=== PATIENT | male | born 1990 | race Caucasian/White ===

== ENCOUNTER 2022-10-13 18:29 | Inpatient (IN) | payer MEDICAID, SELFPAY ==
[2022-10-13 18:30] VITALS: BP 136/75; PULSE 64; RESP 18; TEMP 35.7; O2SAT 97; BMI 27.8
--- NOTE | 2022-10-13 20:03 | EDS_ITS ---
HPI History of Present Illness Chief Complaint: Substance Abuse Informant: patient Narrative Narrative: Patient is not the best informant but does come in for fentanyl detox. He evidently has been using fentanyl off and on for a long time. He does snorts it but he will also inject usually in his legs. He has had infections but never had them drained. He has been given antibiotics. He has never had heart valve involvement. He has not had any infections recently. He went through detox in [place] about 3 weeks ago. After he left, he did start using again. He had his follow-up appointment today to start Suboxone. He evidently had positive screen for fentanyl so they stated that he needs to go through detox again before he can start Suboxone. He has no physical complaints. He last use late last night or early this morning. He states he gets real shaky and anxious when he does not use but he is not feeling that yet. He has not had fevers or chills. He is not suicidal. PFSH PFS Medical History no medical history Home Medications gabapentin 800 mg tablet 800 mg PO TID 10/13/22 [History Last Taken Unknown] Allergy/AdvReac Type Severity Reaction Status Date / Time No Known Allergies Allergy Verified 10/13/22 18:31 Social History Smoking Status: Current every day smoker tobacco type: cigarettes ROS ROS ED ROS Narrative A complete review of systems was performed and is negative except as documented in the history of present illness. Some specific details below. Constitutional: No recent fevers or chills. No recent infections. No malaise. EYE: No visual complaints or pain. ENT: No throat pain CV: No chest pain or palpitations. No history of valve infections. Respiratory: No dyspnea or dyspnea on exertion. No hemoptysis. GI: No nausea vomiting. He has not had diarrhea at this point. : No frequency dysuria or hematuria. Musculoskeletal: No recent trauma. No pains. He normally injects in his legs. But he states his legs look normal to him. Skin: No acute rash. Nondiaphoretic. Neuro: No weakness or numbness. Endocrine: No polyuria or polydipsia. EXAM Physical Exam Narrative Exam Narrative: CONSTITUTIONAL: Patient is nontoxic in appearance. The patient looks comfortable. Work of breathing looks normal. HEENT: No notable trauma. Mucous membranes moist. EYES: No conjunctival injection. No proptosis. NECK:No JVD. No stridor. CARDIOVASCULAR: Regular rate. Regular rhythm. No notable murmur. No JVD. No muffled tones. RESPIRATORY: No respiratory distress. Breathing is unlabored. GASTROINTESTINAL: Not distended. Bowel sounds are normal. No tenderness. GENITOURINARY: No tenderness over the bladder. No CVA tenderness. MUSCULOSKELETAL: Atraumatic. He does have bilateral peripheral edema. He does have signs of track moreno from prior injections but they do not look acutely infected. He states his legs look normal to him. NEUROLOGICAL: Patient is alert and appropriate. No focal deficit noted. He does have a stutter but this is evidently not new. SKIN: Peripheral edema and track moreno but no sign of acute infection. PSYCHIATRIC: Patient is calm. Mood is appropriate. Const Vital Signs: 10/13/22 18:30 10/13/22 23:45 Temperature 96.3 F L Temperature Source Temporal Pulse Rate 64 58 L Respiratory Rate 18 16 Blood Pressure 136/75 H 100/63 Blood Pressure Mean 95 75 Pulse Ox 97 98 Oxygen Delivery Method Room Air Room Air MDM MDM MDM Narrative Medical decision making narrative: Patient CBC shows mild anemia and some leukopenia but his platelets are normal. Patient's electrolytes are normal. Patient's liver function test are normal. Patient's alcohol is negative. Patient's urine tox is positive for MDMA, methamphetamines, cocaine, cannabinoids. 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 Patient reports long-term opiate abuse. I asked him specifically if he uses the other compounds in his urine. He does use use marijuana but denies trying to use cocaine methamphetamines or MDMA. It is certainly possible that these are mixed in with what ever he is using. He went through detox tried to go to follow-up but it sounds like there was a delay between discharge from detox and his follow-up appointment for Suboxone. In that intervening time he started using so at his follow-up appointment did not want to provide Suboxone until he went through detox again. They referred him up here. I have discussed the case with the hospitalist. Lab Data Attestation: I reviewed the patient's lab results. Labs: Laboratory Results - last 24 hr 10/13/22 10/13/22 10/13/22 19:40 19:40 19:40 WBC 3.3 L RBC 4.71 Hgb 12.6 L Hct 38.1 L MCV 80.9 MCH 26.8 L MCHC 33.1 RDW Std Deviation 43.2 RDW Coeff of Oleksandr 14.7 H Plt Count 167 MPV 10.2 Immature Gran % (Auto) 0.300 Neut % (Auto) 61.1 Lymph % (Auto) 24.2 [place] % (Auto) 11.0 H Eos % (Auto) 3.1 Baso % (Auto) 0.3 Absolute Neuts (auto) 2.0 Absolute Lymphs (auto) 0.79 L Nucleated RBC % 0 Sodium 140 Potassium 3.6 Chloride 106 Carbon Dioxide 26.0 Anion Gap 8 BUN 13 Creatinine 0.73 Estim Creat Clear Calc 167.34 Est GFR (MDRD) Af Amer 160 Est GFR (MDRD) Non-Af 132 BUN/Creatinine Ratio 17.9 Glucose 95 Calcium 8.4 L Total Bilirubin 0.70 AST 34 ALT 31 Alkaline Phosphatase 108 Total Protein 6.8 Albumin 3.4 Globulin 3.4 Albumin/Globulin Ratio 1.0 Urine Opiates Screen Urine Methadone Screen Ur Barbiturates Screen Ur Phencyclidine Scrn Ur Amphetamines Screen MDMA (Ecstasy) Screen U Benzodiazepines Scrn Urine Cocaine Screen U Cannabinoids Screen Ur Drug Screen Comment Ethyl Alcohol < 3.0 10/13/22 20:00 WBC RBC Hgb Hct MCV MCH MCHC RDW Std Deviation RDW Coeff of Oleksandr Plt Count MPV Immature Gran % (Auto) Neut % (Auto) Lymph % (Auto) [place] % (Auto) Eos % (Auto) Baso % (Auto) Absolute Neuts (auto) Absolute Lymphs (auto) Nucleated RBC % Sodium Potassium Chloride Carbon Dioxide Anion Gap BUN Creatinine Estim Creat Clear Calc Est GFR (MDRD) Af Amer Est GFR (MDRD) Non-Af BUN/Creatinine Ratio Glucose Calcium Total Bilirubin AST ALT Alkaline Phosphatase Total Protein Albumin Globulin Albumin/Globulin Ratio Urine Opiates Screen NEGATIVE Urine Methadone Screen NEGATIVE Ur Barbiturates Screen NEGATIVE Ur Phencyclidine Scrn NEGATIVE Ur Amphetamines Screen POSITIVE H MDMA (Ecstasy) Screen POSITIVE H U Benzodiazepines Scrn NEGATIVE Urine Cocaine Screen POSITIVE H U Cannabinoids Screen POSITIVE H Ur Drug Screen Comment Ethyl Alcohol Management Discussion w/another healthcare provider: Hospitalist Discharge Plan Triage Chief Complaint: Substance Abuse ED Provider: Joe Rogers Dx/Rx/DC Orders Clinical Impression: Opiate abuse, continuous, Desire for detoxification, Leukopenia Prescriptions: No Action gabapentin 800 mg Tablet 800 mg PO TID Primary Care Provider: Care Physician,No Primary Referrals: Care Physician,No Primary [Primary Care Provider] - Disposition Disposition: Acute Care Hospital [facility]
[2022-10-13 20:12] LABS: AST(SGOT) 34 U/L (15-37); Alanine Aminotransfer ALT/SGPT 31 U/L (16-61); Albumin, Serum 3.4 g/dL (3.2-5.0); Alkaline Phosphatase 108 U/L (45-117); Anion Gap 8 (5-15); BUN 13 mg/dL (7-18); BUN/Creat Ratio 17.9 RATIO (10-20); Calcium,Total 8.4 mg/dL (8.5-10.1); Chloride 106 mmol/L (98-107); Creatinine, Serum 0.73 mg/dL (0.70-1.30); EST Glomerular Filtration Rate 132 mL/min (>60); Est Glom Filt Rate - Afr Amer 160 mL/min (>60); Estimated Creatinine Clearance 167.34 ml/min; Globulin 3.4 g/dL (2.2-4.2); Glucose 95 mg/dL (74-106); Potassium 3.6 mmol/L (3.5-5.1); Protein, Total 6.8 g/dL (6.4-8.2); Sodium Level 140 mmol/L (136-145)
[2022-10-13 20:27] LABS: Amphetamine Urine VISTA POSITIVE (<1000 ng/mL); Barbiturate Urine VISTA NEGATIVE (< 200 ng/mL); Benzodiazepine Urine VISTA NEGATIVE (< 200 ng/mL); Cocaine Urine VISTA POSITIVE (< 300 ng/mL); Ecstacy Urine VISTA POSITIVE (< 500 ng/mL); Methadone Urine VISTA NEGATIVE (< 300 ng/mL); PCP Urine VISTA NEGATIVE (< 25 ng/mL); THC Urine VISTA POSITIVE (< 50 ng/mL); Vista UDS pH Range 6
[2022-10-13 20:34] LABS: Absolute Lymphocyte Count 0.79 X10^3/uL (0.83-4.51); Basophil# 0.01 X10^3/uL; Basophil% 0.3 % (0-1); Eosinophils% 3.1 % (0-5); Hematocrit 38.1 % (40-54); Hemoglobin 12.6 g/dL (13.0-16.5); Lymphocyte # 0.79 X10^3/ul (0.83-4.51); Lymphocyte % 24.2 % (19-41); Mean Corp Hgb Conc 33.1 g/dL (32-36); Mean Corpuscular Hgb 26.8 pg (27.0-32.0); Mean Corpuscular Volume 80.9 fL (80-94); Mean Platelet Vol. 10.2 fl (6.2-12.0); Monocyte# 0.36 X10^3/uL; NRBC Flagged by Analyzer 0 % (0-5); Neutrophil % 61.1 % (47-70); Platelet Count 167 K/mm3 (150-450); RBC Distribution Width CV 14.7 % (11.6-14.6); RBC Distribution Width SD 43.2 fl (35.1-43.9); Red Blood Count 4.71 M/mm3 (4.6-6.2); White Blood Count 3.3 K/mm3 (4.4-11.0)
[2022-10-13 20:52] LABS: Alcohol, Blood (Medical)-Serum < 3.0 mg/dL
[2022-10-13 23:45] VITALS: BP 100/63; PULSE 58; RESP 16; O2SAT 98
--- NOTE | 2022-10-13 23:52 | PCM.HP.STD ---
HPI - General General Date of Admission: 10/14/22 Date of Service: 10/14/22 Chief Complaint: Desire for detoxification HPI Narrative ANTONIO AGUIRRE, is a 32 M with a significant history of tobacco abuse; neuropathy on gabapentin; and opioid abuse who presents to the emergency department for detoxification from opioids. Reportedly patient went to a detox program at [facility] 3 weeks ago. Upon discharge outpatient Suboxone program was arranged. Because when patient went to the outpatient Suboxone program he tested positive for fentanyl he was instructed to come to [facility] for detoxification. Patient reports that the last time that he used fentanyl was on the same day of presentation. Reportedly he used fentanyl for 12 years and now for the past 4 to 5 years he has been using fentanyl. He uses about a gram of fentanyl per day. He is not having any withdrawal symptoms. He snorts and also shoots in his right leg. He denies any withdrawal symptoms at this time. [facility] Medical History no medical history Home Medications gabapentin 800 mg tablet 800 mg PO TID 10/13/22 [History Last Taken Unknown] Allergy/AdvReac Type Severity Reaction Status Date / Time No Known Allergies Allergy Verified 10/13/22 18:31 no significant family history no surgical history Social History Smoking Status: Current every day smoker tobacco type: cigarettes ROS ROS Narrative Pertinent positives and pertinent negatives as noted in HPI. All other systems were reviewed and are negative Vital Signs Vital Signs Vital Signs: 10/13/22 18:30 10/13/22 23:45 Temperature 96.3 F L Temperature Source Temporal Pulse Rate 64 58 L Respiratory Rate 18 16 Blood Pressure 136/75 H 100/63 Blood Pressure Mean 95 75 Pulse Ox 97 98 Oxygen Delivery Method Room Air Room Air Weight Weight: 98.43 kg Body Mass Index (BMI) 27.8 Physical Exam Narrative Physical exam: General: Well-nourished, well-developed. Head: Normocephalic, atraumatic, no tenderness Eyes: Vision is grossly intact. EOMI ENT, no trauma, moist mucous membranes, no rhinorrhea Neck: Nontender, No thyromegaly. CVS: Regular rate and rhythm. S1-S2 present. No murmur, gallop or rub. Respiratory : clear to auscultation bilaterally, chest wall nontender Abdomen: Soft, nontender, nondistended, normal bowel sounds, no masses : Deferred Back: Nontender, no CVA tenderness, no midline spinal tenderness, deformities, step-offs Extremities: Nontender full range of motion, no trauma Skin: Needle track moreno on right leg. Abrasions on bilateral legs. Mild erythema on bilateral dorsal hands. Neuro: Alert, oriented, cranial nerves II through XII grossly intact. Psychiatry: Normal mood. Normal affect. Not depressed. Not anxious. Results Lab / Micro Data Result Diagrams: 10/13/22 19:40 10/13/22 19:40 Labs: Laboratory Results - last 24 hr 10/13/22 19:40: WBC 3.3 L, RBC 4.71, Hgb 12.6 L, Hct 38.1 L, MCV 80.9, MCH 26.8 L, MCHC 33.1, RDW Std Deviation 43.2, RDW Coeff of Oleksandr 14.7 H, Plt Count 167, MPV 10.2, Immature Gran % (Auto) 0.300, Neut % (Auto) 61.1, Lymph % (Auto) 24.2, [place] % (Auto) 11.0 H, Eos % (Auto) 3.1, Baso % (Auto) 0.3, Absolute Neuts (auto) 2.0, Absolute Lymphs (auto) 0.79 L, Nucleated RBC % 0 10/13/22 19:40: Sodium 140, Potassium 3.6, Chloride 106, Carbon Dioxide 26.0, Anion Gap 8, BUN 13, Creatinine 0.73, Estim Creat Clear Calc 167.34, Est GFR (MDRD) Af Amer 160, Est GFR (MDRD) Non-Af 132, BUN/Creatinine Ratio 17.9, Glucose 95, Calcium 8.4 L, Total Bilirubin 0.70, AST 34, ALT 31, Alkaline Phosphatase 108, Total Protein 6.8, Albumin 3.4, Globulin 3.4, Albumin/Globulin Ratio 1.0 10/13/22 19:40: Ethyl Alcohol < 3.0 10/13/22 20:00: Urine Opiates Screen NEGATIVE, Urine Methadone Screen NEGATIVE, Ur Barbiturates Screen NEGATIVE, Ur Phencyclidine Scrn NEGATIVE, Ur Amphetamines Screen POSITIVE H, MDMA (Ecstasy) Screen POSITIVE H, U Benzodiazepines Scrn NEGATIVE, Urine Cocaine Screen POSITIVE H, U Cannabinoids Screen POSITIVE H, Ur Drug Screen Comment Assessment & Plan Assessment/Plan (1) Desire for detoxification: (2) Leukopenia: (3) Opiate abuse, continuous: PLAN: Plan Opioid dependence and withdrawal Alcohol level on unremarkable. Urine drug screen positive for amphetamines, ecstasy, cocaine, and cannabinoids. Patient denies use of other substances except as stated in HPI. Patient be started on Subutex and other adjunctive medications: Dicyclomine as needed; Vistaril as needed; methocarbamol as needed; clonidine as needed; Imodium as needed; trazodone as needed and Zofran as needed. Monitor COWS and CINA score Tobacco abuse Counseled Nicotine patch prescribed. Leukopenia White count 3.3 on presentation. Trend. DVT prophylaxis Low risk Encourage to ambulate
[2022-10-14 00:15] VITALS: BP 100/65; PULSE 58; RESP 16; TEMP 36.7; O2SAT 98
[2022-10-14 01:33] VITALS: BMI 27.6
[2022-10-14 01:35] VITALS: BP 115/72; PULSE 55; RESP 16; TEMP 36.6; O2SAT 97
[2022-10-14] MEDS: Methocarbamol 750 MG Tablet 1500 MG PO ×2 (02:40→14:10)
[2022-10-14] MEDS: Buprenorphine HCl 2 MG TAB.SUBL SL ×3 (02:40→18:29)
[2022-10-14] MEDS: traZODone 100 MG Tablet PO ×2 (02:40→21:05)
[2022-10-14] MEDS: Gabapentin 800 MG Tablet PO ×3 (05:46→21:05)
[2022-10-14] MEDS: hydrOXYzine PAM 25 MG Capsule 50 MG PO ×2 (05:46→14:10)
[2022-10-14 05:50] VITALS: BP 139/83; PULSE 64; RESP 16; TEMP 36.6; O2SAT 98
[2022-10-14] MEDS: Ondansetron 8 MG Tablet PO (06:36)
[2022-10-14 06:52] LABS: Absolute Lymphocyte Count 0.62 X10^3/uL (0.83-4.51); Eosinophil# 0.06 X10^3/uL; Eosinophils% 3.1 % (0-5); Hemoglobin 13.6 g/dL (13.0-16.5); Lymphocyte # 0.62 X10^3/ul (0.83-4.51); Lymphocyte % 32.5 % (19-41); Mean Corp Hgb Conc 33.2 g/dL (32-36); Mean Corpuscular Hgb 26.8 pg (27.0-32.0); Mean Corpuscular Volume 80.9 fL (80-94); Mean Platelet Vol. 10.8 fl (6.2-12.0); Monocyte# 0.22 X10^3/uL; Monocyte% 11.5 % (0-10); NRBC Flagged by Analyzer 0 % (0-5); Neutrophil # 1.01 X10^3/uL (2.7-7.7); Neutrophil % 52.9 % (47-70); Platelet Count 126 K/mm3 (150-450); RBC Distribution Width CV 14.6 % (11.6-14.6); RBC Distribution Width SD 42.6 fl (35.1-43.9); Red Blood Count 5.07 M/mm3 (4.6-6.2); White Blood Count 1.9 K/mm3 (4.4-11.0)
[2022-10-14 09:55] VITALS: BP 117/65; PULSE 68; RESP 16; TEMP 36.7; O2SAT 100
--- NOTE | 2022-10-14 11:26 | ADDICTION ---
This curriculum writer met with PT to conduct ASAM, MSE, AUDIT, DUDIT assessments and to plan for d/c. PT A+Ox4 and participated actively. All assessments completed and placed in PT's chart. PT plans to f/u with [facility] for follow-up outpatient MAT services. [facility] will transport pt.
[2022-10-14 14:03] VITALS: BP 116/70; PULSE 72; RESP 18; TEMP 36.9; O2SAT 96
[2022-10-14] MEDS: Dicyclomine 10 MG Capsule 20 MG PO (16:09)
--- NOTE | 2022-10-14 16:13 | PCM.PN.HOSP ---
Reason for Visit Reason for Visit: Diagnoses Decreased white blood cell count, unspecified (10/13/22) Opioid abuse, uncomplicated (10/13/22) Subjective Subjective Patient was seen and examined today, he does not complain of any anxiety or nervousness at this time. Objective Data Objective Data Vital Signs: Vital Signs Temp Pulse Resp BP Pulse Ox O2 Del Method 98.4 F 72 18 116/70 96 Room Air 10/14/22 14:03 10/14/22 14:03 10/14/22 14:03 10/14/22 14:03 10/14/22 14:03 10/14/22 14:03 Oxygen Delivery Method Room Air Weight: 97.8 kg Body Mass Index (BMI) 27.6 Lab / Micro Data Result Diagrams: 10/14/22 06:32 10/13/22 19:40 Labs: Laboratory Results - last 24 hr 10/13/22 19:40: WBC 3.3 L, RBC 4.71, Hgb 12.6 L, Hct 38.1 L, MCV 80.9, MCH 26.8 L, MCHC 33.1, RDW Std Deviation 43.2, RDW Coeff of Oleksandr 14.7 H, Plt Count 167, MPV 10.2, Immature Gran % (Auto) 0.300, Neut % (Auto) 61.1, Lymph % (Auto) 24.2, [place] % (Auto) 11.0 H, Eos % (Auto) 3.1, Baso % (Auto) 0.3, Absolute Neuts (auto) 2.0, Absolute Lymphs (auto) 0.79 L, Nucleated RBC % 0 10/13/22 19:40: Sodium 140, Potassium 3.6, Chloride 106, Carbon Dioxide 26.0, Anion Gap 8, BUN 13, Creatinine 0.73, Estim Creat Clear Calc 167.34, Est GFR (MDRD) Af Amer 160, Est GFR (MDRD) Non-Af 132, BUN/Creatinine Ratio 17.9, Glucose 95, Calcium 8.4 L, Total Bilirubin 0.70, AST 34, ALT 31, Alkaline Phosphatase 108, Total Protein 6.8, Albumin 3.4, Globulin 3.4, Albumin/Globulin Ratio 1.0 10/13/22 19:40: Ethyl Alcohol < 3.0 10/13/22 20:00: Urine Opiates Screen NEGATIVE, Urine Methadone Screen NEGATIVE, Ur Barbiturates Screen NEGATIVE, Ur Phencyclidine Scrn NEGATIVE, Ur Amphetamines Screen POSITIVE H, MDMA (Ecstasy) Screen POSITIVE H, U Benzodiazepines Scrn NEGATIVE, Urine Cocaine Screen POSITIVE H, U Cannabinoids Screen POSITIVE H, Ur Drug Screen Comment 10/14/22 06:32: WBC 1.9 L, RBC 5.07, Hgb 13.6, Hct 41.0, MCV 80.9, MCH 26.8 L, MCHC 33.2, RDW Std Deviation 42.6, RDW Coeff of Oleksandr 14.6, Plt Count 126 L, MPV 10.8, Immature Gran % (Auto) 0.000, Neut % (Auto) 52.9, Lymph % (Auto) 32.5, [place] % (Auto) 11.5 H, Eos % (Auto) 3.1, Baso % (Auto) 0.0, Absolute Neuts (auto) 1.0 L, Absolute Lymphs (auto) 0.62 L, Nucleated RBC % 0 Physical Exam Const alert, oriented x3, no apparent distress and healthy appearing General Appearance: cooperative, well kempt and well developed Orientation / Consciousness: awake, oriented to person, oriented to place and oriented to time HEENT normocephalic and moist oral mucous membranes Eyes PERRL, EOMs intact bilaterally and conjunctivae normal Neck supple, no JVD, thyroid normal and no carotid bruits General: trachea midline Resp normal respiratory effort and clear to auscultation bilaterally Auscultation: Negative for rales, rhonchi or wheezes Cardio regular rate, regular rhythm, no murmurs, no rub and no gallops GI normal to inspection, nondistended, normoactive bowel sounds, soft to palpation, non-tender and non-distended Extremity no clubbing, cyanosis or edema Skin no rashes or lesions noted General Skin Exam: no breakdown Neuro oriented x3, CN's II-XII intact bilaterally, no focal motor deficits and no sensory deficits noted Sensorium / Orientation: awake and alert Speech: speech normal Psych affect normal Assessment & Plan Assessment/Plan (1) Opiate abuse, continuous: PLAN: Plan 1. Acute opiate withdrawal-patient will continue on his present medications, he told me today that he would like to do an outpatient detox program rather than do a residential program #2 polysubstance abuse-complicates care, medical course, recovery, and prognosis #3 bicytopenia-patient has a low white blood cell count and a low platelet count, this will need to be monitored Total clinical time spent by myself addressing the patient's medical problems, reviewing all of the data, and collaborating with patient's care team: 25 minutes Charges/Coding Visit Charges Inpatient E&M: [id number] [facility] L1
--- NOTE | 2022-10-14 17:41 | PCM.HOSP.N ---
Hospitalist Note Reviewed the patient's home medication list, he has entered that he takes Klonopin 2 mg 3 times a day, the nurse verify that he does take Klonopin, however, Klonopin is not on his OARRS report and the pharmacy that he stated he gets the Klonopin at, has no record that he is ever gotten Klonopin. I confronted the patient with this and he states that he has a prescription but he has not gotten that filled I told him that he would not be receiving any Klonopin in the hospital here. I believe the patient is lying to me.
[2022-10-14 21:01] VITALS: BP 111/66; PULSE 53; RESP 16; TEMP 36.4; O2SAT 100
[2022-10-15] MEDS: Buprenorphine HCl 2 MG TAB.SUBL SL ×2 (02:30→10:20)
[2022-10-15 03:00] VITALS: BP 106/61; PULSE 56; RESP 16; TEMP 37.1; O2SAT 96
[2022-10-15 04:36] LABS: Absolute Lymphocyte Count 1.25 X10^3/uL (0.83-4.51); Basophil# 0.01 X10^3/uL; Basophil% 0.3 % (0-1); Eosinophil# 0.13 X10^3/uL; Eosinophils% 3.4 % (0-5); Hemoglobin 13.8 g/dL (13.0-16.5); Lymphocyte # 1.25 X10^3/ul (0.83-4.51); Lymphocyte % 32.7 % (19-41); Mean Corp Hgb Conc 32.9 g/dL (32-36); Mean Corpuscular Hgb 26.6 pg (27.0-32.0); Mean Corpuscular Volume 81.1 fL (80-94); Mean Platelet Vol. 9.8 fl (6.2-12.0); Monocyte# 0.45 X10^3/uL; Monocyte% 11.8 % (0-10); NRBC Flagged by Analyzer 0 % (0-5); Neutrophil # 1.97 X10^3/uL (2.7-7.7); Neutrophil % 51.5 % (47-70); Platelet Count 158 K/mm3 (150-450); RBC Distribution Width CV 14.5 % (11.6-14.6); RBC Distribution Width SD 42.4 fl (35.1-43.9); Red Blood Count 5.18 M/mm3 (4.6-6.2); White Blood Count 3.8 K/mm3 (4.4-11.0)
[2022-10-15] MEDS: Gabapentin 800 MG Tablet PO ×2 (05:06→14:49)
[2022-10-15 07:50] VITALS: O2SAT 95
[2022-10-15 10:22] VITALS: BP 120/74; PULSE 50; RESP 16; TEMP 36.5; O2SAT 100
[2022-10-15] MEDS: Dicyclomine 10 MG Capsule 20 MG PO (10:31)
[2022-10-15] MEDS: hydrOXYzine PAM 25 MG Capsule 50 MG PO (10:31)
--- NOTE | 2022-10-15 15:56 | PCM.PN.HOSP ---
Reason for Visit Reason for Visit: Diagnoses Decreased white blood cell count, unspecified (10/13/22) Opioid abuse, uncomplicated (10/13/22) Subjective Subjective Patient was seen and examined today, he does not appear anxious or nervous, I talked to addiction social work associate today, they stated that his primary care provider will be picking him up tomorrow and will provide Subutex prescription for him. Objective Data Objective Data Vital Signs: Vital Signs Temp Pulse Resp BP Pulse Ox O2 Del Method 97.7 F L 50 L 16 120/74 100 Room Air 10/15/22 10:22 10/15/22 10:22 10/15/22 10:22 10/15/22 10:22 10/15/22 10:22 10/15/22 10:34 Oxygen Delivery Method Room Air Weight: 97.8 kg Body Mass Index (BMI) 27.6 Intake & Output: Intake and Output for Last 24 Hours 10/13/22 10/14/22 10/15/22 23:59 23:59 23:59 Intake Total 600 / 600 600 / 600 Balance 600 / 600 600 / 600 Lab / Micro Data Result Diagrams: 10/15/22 04:07 10/13/22 19:40 Labs: Laboratory Results - last 24 hr 10/15/22 04:07: WBC 3.8 L, RBC 5.18, Hgb 13.8, Hct 42.0, MCV 81.1, MCH 26.6 L, MCHC 32.9, RDW Std Deviation 42.4, RDW Coeff of Oleksandr 14.5, Plt Count 158, MPV 9.8, Immature Gran % (Auto) 0.300, Neut % (Auto) 51.5, Lymph % (Auto) 32.7, [place] % (Auto) 11.8 H, Eos % (Auto) 3.4, Baso % (Auto) 0.3, Absolute Neuts (auto) 2.0, Absolute Lymphs (auto) 1.25, Nucleated RBC % 0 Physical Exam Const alert, oriented x3, no apparent distress and average body habitus General Appearance: cooperative, well kempt and well developed Orientation / Consciousness: awake, oriented to person, oriented to place and oriented to time HEENT normocephalic and moist oral mucous membranes Eyes PERRL, EOMs intact bilaterally and conjunctivae normal Neck supple, no JVD, thyroid normal and no carotid bruits General: trachea midline Resp normal respiratory effort, no retractions, no use of accessory muscles and clear to auscultation bilaterally Auscultation: Negative for rales, rhonchi or wheezes Cardio regular rate, regular rhythm, S1 normal heart sound, S2 normal heart sound, no murmurs, no rub and no gallops GI normal to inspection, nondistended, normoactive bowel sounds, soft to palpation, non-tender and non-distended Extremity no clubbing, cyanosis or edema Skin no rashes or lesions noted General Skin Exam: no breakdown Neuro oriented x3, CN's II-XII intact bilaterally, moves all extremities, no focal motor deficits and no sensory deficits noted Sensorium / Orientation: awake, alert, oriented to person, oriented to place and oriented to time Speech: speech normal Psych affect normal Assessment & Plan Assessment/Plan (1) Opiate abuse, continuous: PLAN: Plan 1. Acute opiate withdrawal-patient will continue on his present medications, he told me today that he would like to do an outpatient detox program rather than do a residential program #2 polysubstance abuse-complicates care, medical course, recovery, and prognosis #3 bicytopenia-patient had a CBC performed today which showed a leukopenia which was mild, patient's platelet count was normal, etiology of this was unclear. Total clinical time spent by myself addressing the patient's medical problems, reviewing all of the data, and collaborating with patient's care team: 25 minutes Charges/Coding Visit Charges Inpatient E&M: [id number] [facility] L1
--- NOTE | 2022-10-15 17:28 | DS.PCM_ITS ---
Providers Date of Admission: 10/13/22 Primary Care Physician: No Primary Care Phys Reason For Visit: DESIRE FOR DETOXIFICATION Diagnosis Discharge Diagnosis (1) Opiate abuse, continuous: Status: Acute Code(s): F11.10 - Opioid abuse, uncomplicated Plan 1. Acute opiate withdrawal #2 polysubstance abuse-complicates care, medical course, recovery, and prognosis #3 bicytopenia-etiology of this was unclear. #4 noncompliance with medical care-patient checked himself out AMA today Total clinical time spent by myself addressing the patient's medical problems, reviewing all of the data, and collaborating with patient's care team: 30 minutes Medications at Discharge Home Medications gabapentin 800 mg tablet 800 mg PO TID neuropathy 10/13/22 clonazepam 2 mg tablet (Klonopin) 2 mg PO TID anxiety 10/14/22 Hospital Course Operations None Procedures None Summary of Care Provided Minutes Spent on Discharge: 30 Hospital Course: This 32-year-old white male was seen in the emergency room at [facility] requesting services for detox from fentanyl. Patient was noted to have a bicytopenia on his lab work, patient also was positive for amphetamines, ecstasy, cocaine, and cannabinoids. Patient was admitted to [place] [address] using the opiate detox order set, he was seen in consultation by addiction social media specialist. Patient had minimal evidence of opiate withdrawal during his hospital stay. Patient told nursing he was on Klonopin but it was verified from the OARRS report and his outside pharmacy that he had never received a prescription for Klonopin. On 10/15/2022, patient was seen and examined: On examination he appeared in good health and spirits. Vital signs as documented. Skin warm and dry and without overt rashes. Neck without JVD, neck was supple, trachea midline, thyroid was normal. Lungs clear bilaterally, normal air movement was noted. Heart exam notable for regular rhythm, normal sounds and absence of murmurs, rubs or gallops. Abdomen unremarkable and without evidence of organomegaly, masses, or abdominal aortic enlargement. Bowel sounds are present, abdomen is not distended. Extremities nonedematous, no cyanosis was noted, no clubbing was noted. Neuro: Cranial nerves II through XII are grossly intact, no focal motor deficits were noted, sensation to light touch and pinprick intact, motor exam 5/5 throughout. Psych: Patient is alert and oriented x3, he does not appear anxious or depressed, he does not appear agitated. On the afternoon of 10/15/2022 abruptly, patient decided to sign himself out AMA and checked out of the hospital. Weight / BMI Weight Weight: 97.8 kg Body Mass Index (BMI) 27.6 ABG / Lab / Microbiology Data Result Diagrams: 10/15/22 04:07 10/13/22 19:40 Laboratory: Laboratory Results - last 24 hr 10/15/22 04:07: WBC 3.8 L, RBC 5.18, Hgb 13.8, Hct 42.0, MCV 81.1, MCH 26.6 L, MCHC 32.9, RDW Std Deviation 42.4, RDW Coeff of Oleksandr 14.5, Plt Count 158, MPV 9.8, Immature Gran % (Auto) 0.300, Neut % (Auto) 51.5, Lymph % (Auto) 32.7, [place] % (Auto) 11.8 H, Eos % (Auto) 3.4, Baso % (Auto) 0.3, Absolute Neuts (auto) 2.0, Absolute Lymphs (auto) 1.25, Nucleated RBC % 0 Meaningful Use Info Meaningful Use Diagnoses (Choose all that apply): None applicable Discharge Plan Admission Admit Date/Time: 10/13/22 23:56 Attending Provider: Erik Mayfield Primary Care Provider: Care Physician,No Primary Consulting Providers: Ignacio Hart Discharge Orders/Prescriptions Prescriptions: No Action gabapentin 800 mg Tablet 800 mg PO TID clonazepam [Klonopin] 2 mg Tablet 2 mg PO TID Referrals / Follow Up: Care Physician,No Primary [Primary Care Provider] - Disposition Disposition (needs filled in before D/C Order can be placed): Against Medical Advice Charges/Coding Visit Charges Inpatient E&M: [id number] [facility]
== END 2022-10-15 17:01 | disposition left against medical advice (07) | DRG 770 ==
LOC: ED 10-14 → MS3 10-14 01:21
PROVIDERS: Admitting Provider Hospitalist; Emergency Provider Emergency Medicine; Visit Provider Internal Medicine
DX: F11.23 Opioid dependence with withdrawal (principal); D72.819 Decreased white blood cell count, unspecified; F12.90 Cannabis use, unspecified, uncomplicated; F17.210 Nicotine dependence, cigarettes, uncomplicated; G62.9 Polyneuropathy, unspecified; Z91.199 Patient's noncompliance with other medical treatment and regimen due to unspecified reason; Z53.29 Procedure and treatment not carried out because of patient's decision for other reasons; Z79.899 Other long term (current) drug therapy
CPT/HCPCS: 36415; 80053; 80307; 80320; 85025; 99283; 99406; G0480